=== PATIENT | male | born 1995 | race Caucasian/White ===

== ENCOUNTER 2023-09-16 10:23 | Emergency (ER) | payer BC, MEDICAID, SELFPAY ==
[2023-09-16 10:24] VITALS: BP 162/96; PULSE 114; RESP 16; TEMP 37.2; O2SAT 100; BMI 27.8
[2023-09-16 10:27] VITALS: BP 151/112; PULSE 122; RESP 18; O2SAT 100
--- NOTE | 2023-09-16 10:43 | EDS_ITS ---
HPI HPI - GI History of Present Illness Chief Complaint: Abd Pain Informant: patient Abdominal Pain/Flank Pain Onset: Weeks (1) Context: Gradual Onset Timing: Intermittent Quality: Cramping, Sharp and Stabbing Location: LUQ and LLQ Worsened by: Nothing Relieved by: Nothing Nausea/Vomiting/Emesis GI Symptom: Positive for Nausea and Vomiting Quality: Negative for Blood streaks, Coffee ground or Hematemesis Diarrhea/Melena/Hematochezia GI Symptom: Positive for Diarrhea and Hematochezia Associated Symptoms Associated Symptoms: Negative for Dysuria, Frequency or Hematuria Narrative Narrative: Patient presents with abdominal pain that has been intermittent for the past wee k. Patient states that the pain comes in waves. Patient describes it as cramping, sharp, and stabbing. Patient states it is worse over the left side of his abdomen. Patient states nothing makes his pain better and nothing makes it worse. Patient admits to some nausea and vomiting. Patient denies any hematemesis or coffee-ground emesis. Patient admits to some diarrhea and some blood in his stools. Patient denies any dysuria, frequency, or hematuria. Patient admits to some pain into his back. PFSH PFSH Home Medications dicyclomine 10 mg capsule 20 mg (2 x 10 mg) PO TIDAC #20 CAPSULES 09/16/23 [Rx Last Taken Unknown] ondansetron 4 mg disintegrating tablet 4 mg PO Q8H PRN PRN Nausea #10 tabs 08/20 02/11 [Rx Last Taken Unknown] Allergy/AdvReac Type Severity Reaction Status Date / Time No Known Allergies Allergy Verified 09/16/23 10:25 Surgical History H/O vasectomy Social History Smoking Status: Never smoker ROS ROS ED Constitutional Constitutional ED: Reports chills and subjective; Denies fever(s) Eyes Eyes: Denies blurry vision or change in vision ENT ENT ED: Denies rhinorrhea or sore throat Cardiovascular Cardiovascular: Denies chest pain or palpitations Respiratory/Chest Respiratory/Chest: Denies cough or dyspnea Gastrointestinal Gastrointestinal: Reports abdominal pain, diarrhea, nausea and vomiting Genitourinary Genitourinary ED: Denies dysuria or hematuria Musculoskeletal Musculoskeletal: Reports back pain; Denies neck pain Integumentary Denies abscess or rash Neurologic Neurologic: Denies headache(s) or weakness Allergic/Immunologic Allergic/Immunologic ED: Reports urticaria; Denies mouth swelling EXAM Physical Exam Const Vital Signs: 09/16/23 10:24 09/16/23 10:27 09/16/23 12:24 Temperature 99 F Temperature Source Temporal Pulse Rate 114 H 122 H 88 Respiratory Rate 16 18 16 Blood Pressure 162/96 H 151/112 H 139/92 H Blood Pressure Mean 118 125 107 Pulse Ox 100 100 99 Oxygen Delivery Method Room Air Room Air Room Air 09/16/23 14:00 09/16/23 16:00 Temperature Temperature Source Pulse Rate 84 69 Respiratory Rate 17 15 Blood Pressure 154/92 H 133/84 H Blood Pressure Mean 112 100 Pulse Ox 100 99 Oxygen Delivery Method Room Air Room Air Positive well nourished and well developed General Appearance ED: well developed and NAD HEENT Reports moist mucous membranes Neck supple and no JVD Resp normal respiratory effort and clear to auscultation bilaterally Cardio regular rhythm Rate: tachycardic GI Palpation: soft and tender LLQ, RLQ and suprapubic; Negative for guarding or rebound tenderness present Neuro CN's II-XII intact bilaterally, moves all extremities and no sensory deficits noted Sensorium / Orientation: alert Motor Exam: strength 5/5 throughout Psych mental status grossly normal MDM MDM MDM Narrative Medical decision making narrative: Differential diagnosis includes bowel obstruction, perforation, diverticulitis, colitis, ureteral calculus, pyelonephritis, urinary tract infection, and gastroenteritis. Will be obtained to assess for leukocytosis and anemia. Comprehensive metabolic profile will be obtained to assess for hepatic function, renal function, and electrolyte abnormality. Lipase will be obtained to assess for pancreatitis. INR and PTT will be obtained to assess for coagulopathy. Urinalysis will be obtained to assess for urinary tract infection and hematuria. Lab Data Attestation: I reviewed the patient's lab results. Lab results narrative: CBC was reviewed. White blood cell count was normal. Hemoglobin was slightly elevated at 28. Hematocrit was 63.5. Comprehensive metabolic profile was reviewed. BUN was normal at 15. Creatinine was 1.62. The remainder was essentially within normal limits. PT was INR and PTT were reviewed and were within normal limits. Lipase was reviewed and was normal. Urinalysis was reviewed. There is no evidence of urinary tract infection or hematuria. Labs: Laboratory Results - last 24 hr 09/16/23 09/16/23 11:20 16:30 WBC 11.0 RBC 7.34 H Hgb 20.8 H* Hct 63.5 H MCV 86.5 MCH 28.3 MCHC 32.8 RDW Std Deviation 40.2 RDW Coeff of Ailin 13.9 Plt Count 345 MPV 9.3 Immature Gran % (Auto) 0.600 Neut % (Auto) 72.4 H Lymph % (Auto) 14.8 L [place] % (Auto) 8.5 Eos % (Auto) 3.4 Baso % (Auto) 0.3 Absolute Neuts (auto) 8.0 H Absolute Lymphs (auto) 1.62 Nucleated RBC % 0 Differential Comment COMMENT Diff Path Review October foll PT 13.4 INR 1.0 APTT 28.7 Sodium 136 Potassium 4.3 Chloride 103 Carbon Dioxide 28.0 Anion Gap 5 BUN 15 Creatinine 1.62 H Estim Creat Clear Calc 78.93 Est GFR (MDRD) Af Amer 65 Est GFR (MDRD) Non-Af 54 L BUN/Creatinine Ratio 9.3 L Glucose 111 H Calcium 10.6 H Total Bilirubin 0.60 AST 27 ALT 53 Alkaline Phosphatase 54 Total Protein 9.3 H Albumin 4.7 Globulin 4.6 H Albumin/Globulin Ratio 1.0 Lipase 39 Urine Color Yellow Urine Clarity Clear Urine pH 5.0 Ur Specific [place] 1.015 Urine Protein 30 H Urine Glucose (UA) Normal Urine Ketones 50 H Urine Occult Blood 10 H Urine Nitrite Negative Urine Bilirubin Negative Urine Urobilinogen Normal Ur Leukocyte Esterase Negative Urine RBC 0 SEEN Urine WBC 0 SEEN Ur Squamous Epith Cells 0 SEEN Urine Bacteria 0 SEEN Urine Mucus 0 SEEN Radiography Diagnostic Testing: Clinical Impression(s) from Imaging Studies Abdomen/Pelvis CT 09/16/23 11:34 IMPRESSION: Fluid is seen throughout the colon in keeping with the patient''s history of diarrhea. Bilateral renal cysts more prominent on the right side. Electronically Signed: Aniceto Cantu MD at 14:01 EDT , CT scan of the abdomen pelvis was obtained. There is fluid seen throughout the colon. There are bilateral renal cysts, more prominent on the right. There is no other acute abnormality noted. This was interpreted by the radiologist was also independently reviewed by myself. Additional Tests and Interventions Additional Tests or Interventions: Patient was able to provide a stool specimen here. Stool was sent for enteric pathogens. Treatment and Re-Evaluation :: Patient was given IV fluids and Zofran. Patient was given a dose of Bentyl. Patient was given more IV fluids. Patient was advised of his findings. Patient states he is feeling much better on reevaluation. Patient is requesting a prescription for Bentyl. This was ordered. Patient was instructed to follow-up with his primary care physician for results of his enteric pathogens. Patient was instructed to start with a liquid diet and advance to a bland diet and into a regular diet as he feels better. Patient understood and was agreeable with the plan. All questions were answered. Discharge Plan Triage Chief Complaint: Abd Pain ED Provider: Hernando Richard Dx/Rx/DC Orders Clinical Impression: Gastroenteritis, Dehydration Instructions: ED Dehydration (Adult), ED Gastroenteritis, Viral (Adult) Prescriptions: New ondansetron [ondansetron] 4 mg tablet,disintegrating 4 mg PO Q8H PRN PRN (Reason: Nausea) Qty: 10 0RF dicyclomine 10 mg capsule 20 mg PO TIDAC Qty: 20 0RF Primary Care Provider: Care Physician,No Primary Referrals: Yadi Cavazos MD [Med Staff - Therapeutic Riding Instructor] - 5-7 Days Care Physician,No Primary [Primary Care Provider] - Disposition Disposition: Home, Self Care
--- NOTE | 2023-09-16 11:34 | CT_ITS ---
STUDY: CT ABDOMEN AND PELVIS WITH CONTRAST REASON FOR EXAM: Male, 28 years old. One week history of intermittent abdominal pain. Diarrhea. Blood in the stool. RADIATION DOSAGE (If Supplied By Facility): CTDIvol = ( 10.76 ) mGy, DLP = ( 753.32 ) mGycm TECHNIQUE: Transaxial images were obtained from the dome of the diaphragm to the symphysis pubis without oral contrast. Oral and amp; IV Gastrografin and amp; 100mL Isovue-300 was administered. Sagittal and coronal images were reconstructed. Individualized dose optimization techniques were used for this CT. COMPARISON: None. FINDINGS: The visualized lung bases are unremarkable. The visualized portions of the heart are within normal limits. Normal liver. Normal gallbladder and extrahepatic biliary system. Normal spleen. Normal pancreas. Normal bilateral adrenal glands. There is a 6.5 sono by 5 cm cyst in the upper lateral aspect of the right kidney. There is a 1.1 cm cyst in the upper lateral aspect of the left kidney. Incidental note is made of a left retroaortic renal vein. Normal visualized stomach. Normal small intestine. Fluid is seen throughout the colon in keeping with the patient''s history of diarrhea. There are surgical clips in the region of the appendix consistent with a prior appendectomy. Normal abdominal aorta. Normal inferior vena cava. Normal retroperitoneum. Normal urinary bladder. Normal abdominal wall. Normal osseous structures. CT/Abdomen/Pelvis WITH Contrast IMPRESSION: Fluid is seen throughout the colon in keeping with the patient''s history of diarrhea. Bilateral renal cysts more prominent on the right side. Electronically Signed: Aniceto Cantu MD at 14:01 EDT ,
[2023-09-16 11:44] LABS: Absolute Lymphocyte Count 1.62 X10^3/uL (0.83-4.51); Basophil# 0.03 X10^3/uL; Basophil% 0.3 % (0-1); Eosinophil# 0.37 X10^3/uL; Eosinophils% 3.4 % (0-5); Lymphocyte # 1.62 X10^3/ul (0.83-4.51); Lymphocyte % 14.8 % (19-41); Mean Corp Hgb Conc 32.8 g/dL (32-36); Mean Corpuscular Hgb 28.3 pg (27.0-32.0); Mean Corpuscular Volume 86.5 fL (80-94); Mean Platelet Vol. 9.3 fl (6.2-12.0); Monocyte# 0.93 X10^3/uL; Monocyte% 8.5 % (0-10); NRBC Flagged by Analyzer 0 % (0-5); Neutrophil # 7.95 X10^3/uL (2.7-7.7); Neutrophil % 72.4 % (47-70); POSITIVE MORPHOLOGY YES; Platelet Count 345 K/mm3 (150-450); RBC Distribution Width CV 13.9 % (11.6-14.6); RBC Distribution Width SD 40.2 fl (35.1-43.9); Red Blood Count 7.34 M/mm3 (4.6-6.2)
[2023-09-16] MEDS: 0.9% Normal Saline (1000mL) 1,000 ML 1000 ML IV ×3 (11:46→16:07)
[2023-09-16] MEDS: Ondansetron 4 MG/2 ML Vial IV (11:46)
[2023-09-16] MEDS: Dicyclomine 20 MG/2 ML Vial IM (11:48)
[2023-09-16 11:54] LABS: Prothrombin Time (Protime)PT. 13.4 SECONDS (11.7-14.9)
[2023-09-16 11:55] LABS: Partial Thromboplast Time 28.7 Seconds (24.1-36.2)
[2023-09-16 11:58] LABS: AST(SGOT) 27 U/L (15-37); Alanine Aminotransfer ALT/SGPT 53 U/L (16-61); Albumin, Serum 4.7 g/dL (3.2-5.0); Alkaline Phosphatase 54 U/L (45-117); Anion Gap 5 (5-15); BUN 15 mg/dL (7-18); BUN/Creat Ratio 9.3 RATIO (10-20); Calcium,Total 10.6 mg/dL (8.5-10.1); Chloride 103 mmol/L (98-107); Creatinine, Serum 1.62 mg/dL (0.70-1.30); EST Glomerular Filtration Rate 54 mL/min (>60); Est Glom Filt Rate - Afr Amer 65 mL/min (>60); Estimated Creatinine Clearance 78.93 ml/min; Globulin 4.6 g/dL (2.2-4.2); Glucose 111 mg/dL (74-106); Lipase 39 U/L (13-75); Potassium 4.3 mmol/L (3.5-5.1); Protein, Total 9.3 g/dL (6.4-8.2); Sodium Level 136 mmol/L (136-145)
[2023-09-16 12:05] LABS: Hematocrit 63.5 % (40-54)
[2023-09-16 12:09] LABS: Differential Indicated SCAN CRITERIA MET; Hemoglobin 20.8 g/dL (13.0-16.5)
[2023-09-16 12:24] VITALS: BP 139/92; PULSE 88; RESP 16; O2SAT 99
[2023-09-16 14:00] VITALS: BP 154/92; PULSE 84; RESP 17; O2SAT 100
[2023-09-16 16:00] VITALS: BP 133/84; PULSE 69; RESP 15; O2SAT 99
[2023-09-16 16:38] LABS: Bacteria 0 SEEN /hpf (None Seen); Mucous, Urine 0 SEEN /hpf (<or=2+); Red Blood Cells-Urine 0 SEEN /hpf (0-5); Squamous Epithelial Cells - UA 0 SEEN /hpf (0-5); White Blood Cells 0 SEEN /hpf (0-5)
[2023-09-16 16:46] LABS: Color, Urine Yellow (Yellow); Glucose, Dipstick Normal (Normal); Ketone-Dipstick 50 mg/dl (Negative); Leukocyte Esterase-Dipstick Negative /ul (Negative); Nitrite-Dipstick Negative (Negative); Occult Blood-Urine 10 /ul (Negative); Protein-Dipstick 30 mg/dl (Negative); Specific Gravity, Urine 1.015 (1.002-1.030); Urine Bilirubin Dipstick Negative (Negative); Urine Clarity Clear (Clear); Urine Urobilinogen Normal (Normal)
[2023-09-17 11:02] LABS: Pathologist Review Reviewed
== END 2023-09-16 17:22 | disposition home or self-care (01) ==
PROVIDERS: Emergency Provider Emergency Medicine; Visit Provider Emergency Medicine
DX: R10.9 Unspecified abdominal pain (principal); K52.9 Noninfective gastroenteritis and colitis, unspecified; E86.0 Dehydration; Z98.52 Vasectomy status
CPT/HCPCS: 74177; 80053; 81001; 83690; 85025; 85610; 85730; 87506; 96361; 96372; 96374; 99283; J7030; Q9967; A4216; J2405